=== PATIENT | female | born 1940 | race Caucasian/White ===

== ENCOUNTER 2016-10-21 14:59 | Emergency (ER) | payer MEDICARE, BC ==
[2016-10-21] MEDS ORDERED: Rabies Vaccine (Avian) 2.5 Unit Inj Kit IM ONE (15:26)
[2016-10-21] MEDS ORDERED: Rabies Immune Globulin PF 150 Units/ML 2 ML SDV IM ONE ×2 (15:26→15:45)
[2016-10-21] MEDS ORDERED: Rabies Immune Globulin PF 150 Units/ML 10 ML SDV IM ONE ×2 (15:26→15:45)
--- NOTE | 2016-10-21 15:44 | EDM.PDOC ---
ED HPI GENERAL MEDICAL PROBLEM - General Chief Complaint: Bite:Animal, Insect Stated Complaint: VACCINE Time Seen by Provider: 10/21/16 15:20 Source of Information: Reports: Patient History Limitations: Reports: No Limitations - History of Present Illness INITIAL COMMENTS - FREE TEXT/NARRATIVE: History of present illness: [76-year-old female presenting with complaint of recent that night. Patient occasionally was cleaning out a container [place] and subsequently felt a piercing puncture into her left thumb when she realized in fact it was a bat. Patient subsequently did kill the bat and comes in now for treatment.] Review of systems: As per history of present illness and below otherwise all systems reviewed and negative. Past medical history: As per history of present illness and as reviewed below otherwise noncontributory. Surgical history: As per history of present illness and as reviewed below otherwise noncontributory. Social history: No reported history of drug or alcohol abuse. Family history: As per history of present illness and as reviewed below otherwise noncontributory. Physical exam: HEENT: Atraumatic, normocephalic, pupils reactive, negative for conjunctival pallor or scleral icterus, mucous membranes moist, throat clear, neck supple, nontender, trachea midline. Lungs: Clear to auscultation, breath sounds equal bilaterally, chest nontender. Heart: S1S2, regular, negative for clicks, rubs, or JVD. Abdomen: Soft, nondistended, nontender. Negative for masses or hepatosplenomegaly. Negative for costovertebral tenderness. Pelvis: Stable nontender. Genitourinary: Deferred. Rectal: Deferred. Extremities: Atraumatic, negative for cords or calf pain. Neurovascular unremarkable. Neuro: Awake, alert, oriented. Cranial nerves II through XII unremarkable. Cerebellum unremarkable. Motor and sensory unremarkable throughout. Exam nonfocal. Global assessment is benign save stated subjective complaint. Patient indicates she was bitten on the left hand no puncture wound is visualized. Rabies injections ordered to be initiated here. Diagnostics: [] Therapeutics: [] Impression: [Bat bite] Plan: [Rabies prophylaxis] Definitive disposition and diagnosis as appropriate pending reevaluation and review of above. - Related Data Allergies Allergy/AdvReac Type Severity Reaction Status Date / Time No Known Allergies Allergy Verified 10/21/16 15:02 Home Meds: Home Meds Atenolol 25 mg PO QAM 04/07/14 [History] Hydrochlorothiazide 25 mg PO QAM 04/07/14 [History] Acetaminophen [Tylenol Extra Strength] 500 mg PO Q4H PRN #30 tab 04/10/14 [Rx] Ibuprofen [Motrin] 600 mg PO Q6H PRN #30 tablet 04/10/14 [Rx] oxyCODONE 5 mg PO Q4H PRN #10 tablet 04/10/14 [Rx] Amoxicillin/Potassium Clav [Augmentin 875-125 Tablet] 1 each PO BID #20 tablet 10/21/16 [Rx] Past Medical History - Past Health History Medical/Surgical History: Denies Medical/Surgical History HEENT History: Reports: Impaired Vision Other HEENT History: wears glasses 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: Reports: 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: Social & Family History - Family History Family Medical History: Noncontributory - Tobacco Use Smoking Status *Q: Never Smoker Second Hand Smoke Exposure: Yes - Alcohol Use Days Per Week of Alcohol Use: 0 - Recreational Drug Use Recreational Drug Use: No ED ROS GENERAL - Review of Systems Review Of Systems: See Below (See history of present illness) ED EXAM, ANIMAL BITE - Physical Exam Exam: See Below (See history of present illness) Course - Vital Signs Last Recorded V/S: Last Vital Signs Temp 36.6 C 10/21/16 15:14 Pulse 55 L 10/21/16 15:14 Resp 16 10/21/16 15:14 BP 130/60 10/21/16 15:14 Pulse Ox 97 10/21/16 15:14 - Orders/Labs/Meds Orders: Active Orders 24 hr Category Date Time Status Vaccines to be Administered [RC] PER UNIT ROUTINE Care 10/21/16 15:31 Ordered Meds: Medications Discontinued Medications Generic Name Dose Route Start Last Admin Trade Name Freq PRN Reason Stop Dose Admin Rabies Immune Globulin 150 unit 10/21/16 15:26 Hyperrab S/D IM 10/21/16 15:27 ONETIME ONE Rabies Immune Globulin 150 unit 10/21/16 15:26 Imogam Rabies-Ht IM 10/21/16 15:27 .ONCE ONE Rabies Vaccine 2.5 unit 10/21/16 15:26 Rabavert IM 10/21/16 15:27 .ONCE ONE Departure - Departure Time of Disposition: 15:45 Disposition: Home, Self-Care 01 Condition: Good Clinical Impression: Bat bite of finger - Discharge Information Prescriptions: Amoxicillin/Potassium Clav [Augmentin 875-125 Tablet] 1 each PO BID #20 tablet Instructions: Animal Bite, [id number] Forms: ED Department Discharge Additional Instructions: The following information is given to patients seen in the emergency department who are being discharged to home. This information is to outline your options for follow-up care. We provide all patients seen in our emergency department with a follow-up referral. The need for follow-up, as well as the timing and circumstances, are variable depending upon the specifics of your emergency department visit. If you don't have a primary care physician on staff, we will provide you with a referral. We always advise you to contact your personal physician following an emergency department visit to inform them of the circumstance of the visit and for follow-up with them and/or the need for any referrals to a consulting specialist. The emergency department will also refer you to a specialist when appropriate. This referral assures that you have the opportunity for follow-up care with a specialist. All of these measure are taken in an effort to provide you with optimal care, which includes your follow-up. Under all circumstances we always encourage you to contact your private physician who remains a resource for coordinating your care. When calling for follow-up care, please make the office aware that this follow-up is from your recent emergency room visit. If for any reason you are refused follow-up, please contact the [facility] Emergency Department at and asked to speak to the emergency department charge nurse. You've been prescribed medication for your bat bite taken as directed You have had the rabies immunization series started here You're being provided a prescription for follow-up for outpatient further injections since this is a series of injections every 7 days Return to ED as needed as discussed - My Orders Last 24 Hours: My Active Orders 10/21/16 15:31 Vaccines to be Administered [RC] PER UNIT ROUTINE - Assessment/Plan Last 24 Hours: My Active Orders 10/21/16 15:31 Vaccines to be Administered [RC] PER UNIT ROUTINE
== END 2016-10-21 16:36 | disposition home or self-care (01) ==
LOC: MW.ED 14:59
DX: S61.052A Open bite of left thumb without damage to nail, initial encounter (principal); I10 Essential (primary) hypertension; Z23 Encounter for immunization; W55.81XA Bitten by other mammals, initial encounter
CPT/HCPCS: 90376; 90471; 90675; 96372; 99283; 99283-25

== ENCOUNTER 2017-08-01 11:53 | Emergency (ER) | payer MEDICARE, BC ==
[2017-08-01 12:19] VITALS: BP 173/93
--- NOTE | 2017-08-01 12:43 | EDM.PDOC ---
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 Past medical history: As per history of present illness and as reviewed below otherwise noncontributory. Surgical history: As per history of present illness and as reviewed below otherwise noncontributory. Social history: No reported history of drug or alcohol abuse. Family history: As per history of present illness and as reviewed below otherwise noncontributory. Physical exam: Alert and oriented female answering questions appropriately in full sentences without any shortness of breath. She has a good affect .skin is warm and dry HEENT: Atraumatic, normocehpalic, pupils reactive, negative for conjunctival pallor or scleral icterus, mucous membranes moist, throat clear, neck supple, nontender, trachea midline. Lungs: Clear to auscultation, breath sounds equal bilaterally, chest non tender. Heart: S1S2, regular, negative for clicks, rubs, or JVD. Abdomen: Soft, nondistended, nontender. Negative for masses or hepatossplenmegaly. Negative for costovertebral tenderness. Pelvis: Stable nontender. Genitourinary: Deferred. Rectal: Deferred Extremities: Atraumatic, negative for cords or calf pain. Tender noted to the right sciatic radiculopathy to her foot . Raise and lowers legs will range of motion. Right leg with difficulty. Pulses are intact Neurovascular unremarkable. Neuro: Awake, alert, oriented. Cranial nerves II through XII unremarkable. Cerebellum unremarkable. Motor and sensory unremarkable throughout. Exam nonfocal. Diagnostics: [] Therapeutics: [] Impression: [Right sciatic pain] Plan: [Discharged to home Gabapentin 100 mg 3 times a day when necessary pain Follow-up with your primary care provider ] Definitive disposition and diagnosis as appropriate pending reevaluation and review of above. 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 Back Pain Score (Numeric/FACES): 10 - Related Data Allergies Allergy/AdvReac Type Severity Reaction Status Date / Time No Known Allergies Allergy Verified 08/01/17 12:19 Home Meds: Home Meds Atenolol 25 mg PO QAM 04/07/14 [History] Hydrochlorothiazide 25 mg PO QAM 04/07/14 [History] Gabapentin [Neurontin] 100 mg PO TID PRN #30 capsule 08/01/17 [Rx] Past Medical History - Past Health History Medical/Surgical History: Denies Medical/Surgical History HEENT History: Reports: Impaired Vision Other HEENT History: wears glasses 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 ED EXAM,LOWER BACK PAIN/INJURY - Physical Exam Exam: See Below (see dictation) Course - Vital Signs Last Recorded V/S: Last Vital Signs Temp 36.7 C 08/01/17 12:16 Pulse 56 L 08/01/17 12:16 Resp 16 08/01/17 12:16 BP 173/93 H 08/01/17 12:16 Pulse Ox 96 08/01/17 12:16 Departure - Departure Time of Disposition: 12:43 Disposition: Home, Self-Care 01 Condition: Good Clinical Impression: Sciatica Qualifiers: Laterality: right Qualified Code(s): M54.31 - Sciatica, right side - Discharge Information Prescriptions: Gabapentin [Neurontin] 100 mg PO TID PRN #30 capsule PRN Reason: Pain (Moderate 4-6) Instructions: Sciatica Referrals: PCP,None [Primary Care Provider] - Additional Instructions: The following information is given to patients seen in the emergency department who are being discharged to home. This information is to outline your options for follow-up care. We provide all patients seen in our emergency department with a follow-up referral. The need for follow-up, as well as the timing and circumstances, are variable depending upon the specifics of your emergency department visit. If you don't have a primary care physician on staff, we will provide you with a referral. We always advise you to contact your personal physician following an emergency department visit to inform them of the circumstance of the visit and for follow-up with them and/or the need for any referrals to a consulting specialist. The emergency department will also refer you to a specialist when appropriate. This referral assures that you have the opportunity for followup care with a specialist. All of these measure are taken in an effort to provide you with optimal care, which includes your followup. Under all circumstances we always encourage you to contact your private physician who remains a resource for coordinating your care. When calling for followup care, please make the office aware that this follow-up is from your recent emergency room visit. If for any reason you are refused follow-up, please contact the [facility] emergency department at and asked to speak to the emergency department charge nurse. He has sciatic pain on the right side Gabapentin has been ordered per your pharmacy Use continue with Motrin as needed 3 times a day Follow-up with your provider Referral for physical therapy has been given
== END 2017-08-01 13:01 | disposition home or self-care (01) ==
LOC: MW.ED 11:53
DX: M54.31 Sciatica, right side (principal); I10 Essential (primary) hypertension; Z77.22 Contact with and (suspected) exposure to environmental tobacco smoke (acute) (chronic)
CPT/HCPCS: 99283

== ENCOUNTER 2018-10-16 19:20 | Emergency (ER) | payer MEDICARE, BC ==
[2018-10-16] MEDS ORDERED: Ketorolac 30 MG/ML SDV IVPUSH ONE (19:44)
[2018-10-16] MEDS ORDERED: Sodium Chloride 0.9% 1,000 ML IV ONE (19:44)
[2018-10-16] MEDS ORDERED: Ondansetron 4 MG/2 ML SDV IVPUSH ONE (19:44)
--- NOTE | 2018-10-16 20:04 | EDM.PDOC ---
<Barbi Estevez - Last Filed: 10/16/18 21:52> ED HPI GENERAL MEDICAL PROBLEM - General Chief Complaint: Gastrointestinal Problem Stated Complaint: DIARRHEA, VOMITING X 2 DAYS Time Seen by Provider: 10/16/18 19:35 Source of Information: Reports: Patient History Limitations: Reports: No Limitations - History of Present Illness INITIAL COMMENTS - FREE TEXT/NARRATIVE: HISTORY AND PHYSICAL: History of present illness: Patient is an 78-year-old female presents to the ED today with concern of right sided abdominal pain, diarrhea, and vomiting for 2-3 days. Patient states it originally started with diarrhea and vomiting and then yesterday she started getting 9 out of 10 abdominal pain that starts up in the right upper quadrant that goes down to the right lower quadrant to suprapubic area. Patient states she is only thrown up on a few occasions but does have nausea. Patient states she did have watery diarrhea but took Imodium this morning and throughout the day which has stopped her diarrhea. Patient states she has a history of high blood pressure but denies any other health history. Patient denies any other symptoms at this time. Patient denies fever, chills, chest pain, shortness of breath, or cough. Denies headache, neck stiff ness, change in vision, syncope, or near syncope. Denies dysuria. Has not noted any blood in urine or stool. Review of systems: As per history of present illness and below otherwise all systems reviewed and negative. Past medical history: As per history of present illness and as reviewed below otherwise noncontributory. Surgical history: As per history of present illness and as reviewed below otherwise noncontributory. Social history: See social history for further information Family history: As per history of present illness and as reviewed below otherwise noncontributory. Physical exam: General: Patient is alert, oriented, and in no acute distress. Patient laying comfortably on exam table. HEENT: Atraumatic, normocephalic, pupils equal and reactive bilaterally, negative for conjunctival pallor or scleral icterus, mucous membranes moist, TMs normal bilaterally, throat clear, neck supple, nontender, trachea midline. No drooling or trismus noted. No meningeal signs. No hot potato voice noted. Lungs: Clear to auscultation, breath sounds equal bilaterally, chest nontender. Heart: S1S2, regular rate and rhythm without overt murmur Abdomen: Soft, nondistended. [id number] pain of the right upper and right lower quadrant without guarding. Negative for masses or hepatosplenomegaly. Negative for costovertebral tenderness. Pelvis: Stable nontender. Genitourinary: Deferred. Rectal: Deferred. Skin: Intact, warm, dry. No lesions or rashes noted. Extremities: Atraumatic, negative for cords or calf pain. Neurovascular unremarkable. Neuro: Awake, alert, oriented. Cranial nerves II through XII unremarkable. Cerebellum unremarkable. Motor and sensory unremarkable throughout. Exam nonfocal. Notes: Dr. Triplett has assumed care of patient and will follow remaining diagnostics and disposition. Diagnostics: CBC, CMP, UA, lipase, abdominal pelvic CT, EKG, stool studies, C. difficile, ova and parasite, chest x-ray Therapeutics: Normal saline, Zofran, Toradol Prescription: Impression: Right sided abdominal pain Vomiting and diarrhea unspecified Plan: Definitive disposition and diagnosis as appropriate pending reevaluation and review of above. 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 ED EXAM, GI/ABD - Physical Exam Exam: See Below (See dictation) Course - Vital Signs Last Recorded V/S: Last Vital Signs Temp 36.1 C 10/16/18 19:28 Pulse 63 10/16/18 22:20 Resp 16 10/16/18 22:20 BP 162/51 H 10/16/18 22:20 Pulse Ox 97 10/16/18 22:20 - Orders/Labs/Meds Orders: Active Orders 24 hr Category Date Time Status EKG Documentation Completion [RC] STAT Care 10/16/18 19:59 Active CDIFF TOX A+B [OP] Stat Lab 10/16/18 19:45 Ordered CULTURE STOOL + CAMPY+SHIGATOX [RM] Stat Lab 10/16/18 19:45 Ordered CULTURE URINE [RM] Stat Lab 10/16/18 20:45 Received OVA & PARASITES BY IMMUNOASSAY [MREF] Stat Lab 10/16/18 19:45 Ordered Labs: Laboratory Tests 10/16/18 10/16/18 10/16/18 Range/Units 20:01 20:01 20:45 WBC 4.96 (4.0-11.0) K/uL RBC 4.68 (4.30-5.90) M/uL Hgb 13.5 (12.0-16.0) g/dL Hct 41.0 (36.0-46.0) % MCV 87.6 (80.0-98.0) fL MCH 28.8 (27.0-32.0) pg MCHC 32.9 (31.0-37.0) g/dL RDW Std Deviation 43.0 (28.0-62.0) fl RDW Coeff of Leni 14 (11.0-15.0) % Plt Count 223 (150-400) K/uL MPV 9.20 (7.40-12.00) fL Neut % (Auto) 58.7 (48.0-80.0) % Lymph % (Auto) 23.0 (16.0-40.0) % [place] % (Auto) 13.3 (0.0-15.0) % Eos % (Auto) 4.6 (0.0-7.0) % Baso % (Auto) 0.4 (0.0-1.5) % Neut # (Auto) 2.9 (1.4-5.7) K/uL Lymph # (Auto) 1.1 (0.6-2.4) K/uL [place] # (Auto) 0.7 (0.0-0.8) K/uL Eos # (Auto) 0.2 (0.0-0.7) K/uL Baso # (Auto) 0.0 (0.0-0.1) K/uL Nucleated RBC % 0.0 /100WBC Nucleated RBCs # 0 K/uL Sodium 136 (136-145) mmol/L Potassium 3.9 (3.5-5.1) mmol/L Chloride 101 (98-107) mmol/L Carbon Dioxide 28.9 (21.0-32.0) mmol/L BUN 21 H (7.0-18.0) mg/dL Creatinine 1.0 (0.6-1.0) mg/dL Est Cr Clr Drug Dosing 40.23 mL/min Estimated GFR (MDRD) 53.3 ml/min Glucose 102 (74-106) mg/dL Calcium 9.5 (8.5-10.1) mg/dL Total Bilirubin 0.5 (0.2-1.0) mg/dL AST 25 (15-37) IU/L ALT 19 (14-63) IU/L Alkaline Phosphatase 48 (46-116) U/L Total Protein 6.4 (6.4-8.2) g/dL Albumin 3.4 (3.4-5.0) g/dL Globulin 3.0 (2.6-4.0) g/dL Albumin/Globulin Ratio 1.1 (0.9-1.6) Lipase 70 L (73-393) U/L Urine Color DARK YELLOW Urine Appearance SLT CLOUDY Urine pH 5.5 (5.0-8.0) Ur Specific [place] <= 1.005 (1.001-1.035) Urine Protein NEGATIVE (NEGATIVE) mg/dL Urine Glucose (UA) NEGATIVE (NEGATIVE) mg/dL Urine Ketones NEGATIVE (NEGATIVE) mg/dL Urine Occult Blood NEGATIVE (NEGATIVE) Urine Nitrite NEGATIVE (NEGATIVE) Urine Bilirubin NEGATIVE (NEGATIVE) Urine Urobilinogen 0.2 (<2.0) EU/dL Ur Leukocyte Esterase TRACE H (NEGATIVE) Urine RBC 0-2 (0-2/HPF) Urine WBC 0-4 (0-5/HPF) Ur Epithelial Cells FEW (NONE-FEW) Urine Bacteria FEW (NEGATIVE) Meds: Medications Discontinued Medications Generic Name Dose Route Start Last Admin Trade Name Freq PRN Reason Stop Dose Admin Sodium Chloride 1,000 mls @ 500 mls/hr 10/16/18 19:44 10/16/18 20:06 Normal Saline IV 10/16/18 21:43 500 mls/hr STAT ONE Administration Iopamidol 100 ml 10/16/18 21:58 10/16/18 22:00 Isovue-370 (76%) IVPUSH 10/16/18 21:59 100 ml ONETIME ONE Administration Ketorolac Tromethamine 30 mg 10/16/18 19:44 10/16/18 20:06 Toradol IVPUSH 10/16/18 19:45 30 mg ONETIME ONE Administration Ondansetron HCl 4 mg 10/16/18 19:44 10/16/18 20:07 Zofran IVPUSH 10/16/18 19:45 4 mg ONETIME ONE Administration Departure - Departure Disposition: Home, Self-Care 01 Clinical Impression: Enteritis - Discharge Information Referrals: Saeed Cosby MD [Primary Care Provider] - Forms: ED Department Discharge Additional Instructions: The following information is given to patients seen in the emergency department who are being discharged to home. This information is to outline your options for follow-up care. We provide all patients seen in our emergency department with a follow-up referral. The need for follow-up, as well as the timing and circumstances, are variable depending upon the specifics of your emergency department visit. If you don't have a primary care physician on staff, we will provide you with a referral. We always advise you to contact your personal physician following an emergency department visit to inform them of the circumstance of the visit and for follow-up with them and/or the need for any referrals to a consulting specialist. The emergency department will also refer you to a specialist when appropriate. This referral assures that you have the opportunity for followup care with a specialist. All of these measure are taken in an effort to provide you with optimal care, which includes your followup. Under all circumstances we always encourage you to contact your private physician who remains a resource for coordinating your care. When calling for followup care, please make the office aware that this follow-up is from your recent emergency room visit. If for any reason you are refused follow-up, please contact the [facility] emergency department at and ask to speak to the emergency department charge nurse. [facility] Primary care- [place] [address] Please contact her provider in the clinic or one of ours for follow-up care and return to ER as needed and as discussed. Push sips of fluid and bland bites of food and use the Bentyl/dicyclomine and Zofran as needed for cramping diarrhea nausea and vomiting. Please also discuss with your provider the nonspecific findings of your CAT scan, ascites fluid, as this may need follow-up going forward. <Niurka Triplett - Last Filed: 10/16/18 23:23> ED HPI GENERAL MEDICAL PROBLEM - History of Present Illness INITIAL COMMENTS - FREE TEXT/NARRATIVE: This is Dr. Triplett dictating addendum note as I'm assuming care of this case at 10 PM. The chest x-ray has been reviewed and is within normal limits as well as the CT scan results which indicate a nonspecific enteritis and some ascites fluid. Her liver function tests are within normal limits. The patient did not produce a stool sample here for study. She feels significantly improved and I will send her home on Bentyl and Zofran but have stressed need for close follow- up with her provider in the clinic as the ascites is nonspecific. Please add to impression--enteritis ED ROS GENERAL - Review of Systems Review Of Systems: ROS reveals no pertinent complaints other than HPI. Departure - Departure Time of Disposition: 23:22 Condition: Good
[2018-10-16] MEDS ORDERED: Iopamidol 755 Mg/ML 100 ML Bottle IVPUSH ONE (21:58)
--- NOTE | 2018-10-16 23:11 | CR ---
CHEST 2 VIEWS INDICATION: Chest pain short of breath IMPRESSION: Normal heart size and vascular pattern. Lungs are clear. No pneumothorax or pleural effusion. Dictated by Yamil Díaz MD @ Oct 16 2018 11:09PM Signed by Dr. Yamil Díaz @ Oct 16 2018 11:09PM
--- NOTE | 2018-10-16 23:15 | CT ---
INDICATION: Right-sided pain. COMPARISON: None available TECHNIQUE: CT examination of the abdomen and pelvis was performed with the uneventful intravenous administration of 100 cc of Isovue 370 while 3 mm thick axial sections were obtained from the lung bases through the pubic symphysis. Oral contrast was not administered. Please note that all CT scans at this facility use dose modulation, iterative reconstruction, and/or weight-based dosing when appropriate to reduce radiation dose to as low as reasonably achievable. FINDINGS: Mild amount of ascites with a small amount of fluid seen in the right pericolic gutter and a moderate amount of fluid in the pelvis. In the abdomen, the liver, spleen, pancreas, and adrenals are normal in appearance. The kidneys are normal in appearance. The gallbladder is normal in appearance. The abdominal aorta is normal in caliber with no sign of dilatation. There is no sign of retroperitoneal mass or adenopathy. The stomach, loops of small bowel, and the right colon in the abdomen are normal in appearance. There is moderate diverticulosis of the descending colon with no sign of diverticulitis. In the pelvis, the appendix is nonvisualized, but there is no sign of an inflammatory process in the area of the appendix. In the pelvis, there is mild mucosal thickening of the distal jejunum and ileum, consistent with a nonspecific enteritis. There is no sign of dilatation of these loops of bowel. There is prominent diverticulosis of the sigmoid colon with no sign of diverticulitis. The rectum is normal in appearance. The uterus is absent and the adnexal regions are normal in appearance. The urinary bladder is normal in appearance. There is no sign of pelvic or inguinal mass or adenopathy. The lung bases are clear. There is mild scoliosis of the lumbar spine convex towards the right. Note is made of a lumbarized S1 segment. There is prominent L4-5 and moderate L2-3 disc degenerative disease, with mild disc degenerative disease throughout the rest of the lumbar spine. IMPRESSION: Mild ascites. Moderate diverticulosis of the descending colon with no sign of diverticulitis. CT of the pelvis shows mild mucosal thickening of the distal small bowel, a nonspecific enteritis. Prominent diverticulosis of the sigmoid colon with no sign of diverticulitis. Status post hysterectomy. Please note that all CT scans at this facility use dose modulation, iterative reconstruction, and/or weight-based dosing when appropriate to reduce radiation dose to as low as reasonably achievable. Dictated by Jacoby Vásquez MD @ [facility] 8 2019 11:06PM Signed by Dr. Jacoby Vásquez @ Oct 16 2018 11:13PM
[2018-10-17 02:27] VITALS: BP 187/77
== END 2018-10-16 23:51 | disposition home or self-care (01) ==
LOC: MW.ED 19:20
DX: K52.9 Noninfective gastroenteritis and colitis, unspecified (principal)
CPT/HCPCS: 36415; 71046; 74177; 80053; 81001; 83690; 85025; 87086; 87088; 87186; 93005; 96361; 96374; 96375; 99285; J1885; J2405; J7040; Q9967

== ENCOUNTER 2021-08-10 17:06 | Observation (INO) | payer MEDICARE, BC ==
[2021-08-10] MEDS ORDERED: Sodium Chloride 0.9% 10 ML Syringe FLUSH PRN (18:06)
[2021-08-10] MEDS ORDERED: Sodium Chloride 0.9% 2.5 ML Syringe FLUSH PRN (18:06)
[2021-08-10] MEDS ORDERED: Sodium Chloride 0.9% 1,000 ML IV ONE (18:31)
[2021-08-10 19:05] LABS: BLOOD UREA NITROGEN,BUN 62 mg/dL (7.0-18.0); CARBON DIOXIDE,CO2 24.8 mmol/L (21.0-32.0); CHLORIDE,CL 99 mmol/L (98-107); GLUCOSE RANDOM 102 mg/dL (74-106); POTASSIUM,K 3.9 mmol/L (3.5-5.1); SODIUM,NA 132 mmol/L (136-145)
[2021-08-10] MEDS ORDERED: Gabapentin 300 MG Cap PO PRN (23:39)
[2021-08-11] MEDS ORDERED: Gabapentin 300 MG Cap**OWN MED PO PRN (00:01)
[2021-08-11] MEDS: Acetaminophen 325 MG Tab PO PRN ×4 (00:18→16:17)
[2021-08-11 06:42] LABS: POTASSIUM,K 3.3 mmol/L (3.5-5.1)
[2021-08-11] MEDS: LOSARTAN PO SCH ×2 (09:05→10:27)
[2021-08-11] MEDS: HYDROCHLOROTHIAZIDE PO SCH ×2 (09:05→10:27)
[2021-08-11] MEDS: Atenolol 25 MG Tab ONE ×2 (09:06→11:10)
[2021-08-11] MEDS: Atenolol 50 MG Tab**OWN MED PO SCH ×2 (10:03→10:29)
[2021-08-11] MEDS ORDERED: Potassium Chloride 20 MEQ Tab.ER PO ONE ×2 (11:02→12:54)
[2021-08-11 15:59] VITALS: BP 130/59; PULSE 74
== END 2021-08-11 17:30 | disposition home or self-care (01) ==
LOC: MW.ED 17:06 → MW.MS 20:34 → UNDOADMOB 21:06 → MW.MS 21:06
PROVIDERS: ADMIT Internal Medicine; ATTEND Internal Medicine
DX: R55 Syncope and collapse (principal); I10 Essential (primary) hypertension; Z79.899 Other long term (current) drug therapy; Z98.890 Other specified postprocedural states; Z20.822 Contact with and (suspected) exposure to COVID-19
CPT/HCPCS: 36415; 70450; 71046; 80048; 80053; 81001; 83735; 84484; 85025; 93005; A9270; J7030; U0002; 99285-25; G0378

== ENCOUNTER 2024-02-22 08:37 | Emergency (ER) | payer MEDICARE, BC ==
[2024-02-22] MEDS: Acetaminophen 500 MG Tab PO ONE (09:26)
[2024-02-22] MEDS: Sodium Chloride 0.9% 10 ML Syringe FLUSH PRN (09:27)
[2024-02-22] MEDS: Labetalol 100 MG/20 ML MDV IVPUSH ONE (09:31)
[2024-02-22 09:35] LABS: BASOPHILS ABSOLUTE AUTO 0.05 K/uL (0.00-0.20); BASOPHILS PERCENT AUTO 0.9 % (0.0-1.0); EOSINOPHILS ABSOLUTE AUTO 0.24 K/uL (0.00-0.45); EOSINOPHILS PERCENT AUTO 4.4 % (0.0-6.0); HEMATOCRIT 42.1 % (37.0-47.0); HEMOGLOBIN 14.5 g/dL (12.0-16.0); IMMATURE GRAN ABSOLUTE AUTO 0.02 K/uL (0.00-0.05); IMMATURE GRAN PERCENT AUTO 0.4 % (0.0-0.4); LYMPHOCYTES PERCENT AUTO 14.6 % (24.0-44.0); MEAN CORPUSCULAR HEMOGLOBIN 31.7 pg (28.0-32.0); MEAN CORPUSCULAR HGB CONC 34.4 g/dL (32.0-36.0); MEAN CORPUSCULAR VOLUME 92.1 fL (83.0-99.0); MONOCYTES ABSOLUTE AUTO 0.55 K/uL (0.00-0.80); MONOCYTES PERCENT AUTO 10.1 % (0.0-8.0); NEUTROPHILS ABSOLUTE AUTO 3.81 K/uL (1.80-7.70); NEUTROPHILS PERCENT AUTO 69.6 % (41.0-71.0); PLATELET COUNT,PLT 224 K/uL (150-400); RED BLOOD CELL COUNT 4.57 M/uL (4.10-5.30); WHITE BLOOD CELL COUNT,WBC 5.47 K/uL (3.9-11.3)
[2024-02-22 09:47] LABS: INR 0.95 (0.86-1.11)
[2024-02-22 10:05] LABS: A/G RATIO 1.1 (0.9-1.6); ALBUMIN 3.5 g/dL (3.4-5.0); BILIRUBIN TOTAL 0.5 mg/dL (0.2-1.0); CALCIUM 9.8 mg/dL (8.5-10.1); CARBON DIOXIDE,CO2 33.2 mmol/L (21.0-32.0); EST CRCL DRUG DOSING (CG) 32.14 mL/min; POTASSIUM,K 3.6 mmol/L (3.5-5.1); PROTEIN TOTAL,TP 6.6 g/dL (6.4-8.2)
[2024-02-22 10:29] VITALS: BP 169/99; PULSE 95
== END 2024-02-22 10:30 | disposition home or self-care (01) ==
LOC: MW.ED 08:37
DX: S40.022A Contusion of left upper arm, initial encounter (principal); I48.91 Unspecified atrial fibrillation; M25.542 Pain in joints of left hand; M25.532 Pain in left wrist; M25.422 Effusion, left elbow; I10 Essential (primary) hypertension; Z90.710 Acquired absence of both cervix and uterus; Z79.899 Other long term (current) drug therapy; W22.8XXA Striking against or struck by other objects, initial encounter
CPT/HCPCS: 36415; 73060; 73080; 73100; 73120; 80053; 85025; 85610; 93005; 96374; 99284; A9270; J1921; J3490; 93010

== ENCOUNTER 2024-02-24 19:33 | Emergency (ER) | payer MEDICARE, BC ==
[2024-02-24 19:49] VITALS: PULSE 87
[2024-02-24 23:04] VITALS: BP 149/84
== END 2024-02-24 20:07 | disposition home or self-care (01) ==
LOC: MW.ED 19:33
DX: I10 Essential (primary) hypertension (principal); S40.022A Contusion of left upper arm, initial encounter; Z90.710 Acquired absence of both cervix and uterus; Z79.899 Other long term (current) drug therapy; X58.XXXA Exposure to other specified factors, initial encounter
CPT/HCPCS: 99283